=== PATIENT | male | born 1980 | race Caucasian/White ===

== ENCOUNTER 2018-05-19 17:17 | Observation (INO) ==
[2018-05-19] MEDS ORDERED: Sod Chloride 0.9% Inj 1,000 ML IV.CONT SCH (20:30)
--- NOTE | 2018-05-19 20:41 | ED ---
HPI General Chief Complaint: Weakness Stated Complaint: facial paralysis Time Seen by Provider: 05/19/18 20:17 Source: patient Mode of arrival: ambulatory Limitations: no limitations History of Present Illness HPI Narrative: 37-year-old male complains of slow speech and right-sided facial weakness. Patient states that symptoms started 4 days ago. Patient states that the symptoms seem to be worse since then. 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 Patient denies any recent head injury. Patient denies any fever. Patient states that he had headache 4 days ago but not since then. Patient denies any visual change. Patient denies any neck pain. Patient denies any chest pain or shortness of breath. Patient denies abdominal pain. Patient denies any focal weakness or numbness of the extremity. Patient denies history hypertension, diabetes, hyperlipidemia. Patient is a non-smoker. Patient denies any alcohol or drug abuse. Onset (ago): day(s) Timing confirmed by: spouse Location: speech and right face History of same: No Severity: mild Quality: weak Relieving factors: none Exacerbating factors: none Context: sudden onset On Anticoagulants: No Associated symptoms: denies other symptoms Treatments Prior to Arrival: none Related Data Home Medications Medication Instructions Recorded Confirmed No Known Home Medications 05/19/18 05/19/18 Allergies Allergy/AdvReac Type Severity Reaction Status Date / Time steroid AdvReac Hives Uncoded 05/19/18 20:07 Review of Systems ROS: all other systems reviewed are negative PMFSH Medical History Medical History Medical history unknown (Acute) Social History Social History Substance History: No History of Abuse Second Hand Smoke Exposure: No Smoking Status: Never smoker How Often Do You Have a Drink Containing Alcohol: Never Recent Travel in [facility] within the Last 8 Weeks: No Immunization History Tetanus Immunization: Unsure Hx Influenza Vaccine This Season: No Exam Narrative Exam Narrative: GENERAL: Well-nourished, well-developed patient. SKIN: Focused skin assessment warm/dry. HEAD: Normocephalic. EYES: No scleral icterus. No injection or drainage. Visual field intact. NECK: Supple, trachea midline. No JVD or lymphadenopathy. CARDIOVASCULAR: Regular rate and rhythm without murmurs, gallops, or rubs. RESPIRATORY: Breath sounds equal bilaterally. No accessory muscle use. GASTROINTESTINAL: Abdomen soft, non-tender, nondistended. MUSCULOSKELETAL: No cyanosis, or edema. BACK: Nontender without obvious deformity. No CVA tenderness. Neurologic exam: Patient has mild weakness on the right side of face around the mouth area. No evidence of weakness of the forehead. No evidence of any focal weakness or numbness of the extremity. Visual field intact. Course Initial Documented Vital Signs Temperature 98.3 F 05/19/18 18:39 Pulse Rate 87 05/19/18 18:39 Respiratory Rate 18 05/19/18 18:39 Blood Pressure 133/78 05/19/18 18:39 Pulse Oximetry 96 05/19/18 18:39 Last Documented Vital Signs Temperature 98.3 F 05/19/18 18:39 Pulse Rate 87 05/19/18 18:39 Respiratory Rate 18 05/19/18 18:39 Blood Pressure 133/78 05/19/18 18:39 Pulse Oximetry 96 05/19/18 20:41 Medical Decision Making MDM Narrative Medical decision making narrative: 37-year-old male with new onset of right- sided facial weakness and slurred speech. History of Blkfujq-Xfyxg-Jqznc dystrophy. Normal saline solution 70 cc an hour. Medical Screen Exam Complete: Yes Emergency Medical Condition: Yes Differential Diagnosis Differential Diagnosis: Differential diagnosis including TIA, CVA, exacerbation of dystrophy. Lab Data Lab results reviewed: Yes I reviewed the patient's lab results. Result diagrams: 05/19/18 20:34 05/19/18 20:34 Lab Results 05/19/18 05/19/18 05/19/18 Range/Units 20:34 20:34 20:34 WBC 8.1 (4.0-11.0) th/mm3 RBC 4.93 (4.50-5.90) mil/mm3 Hgb 15.6 (13.0-17.0) gm/dL Hct 45.3 (39.0-51.0) % MCV 91.9 (80.0-100.0) fL MCH 31.7 (27.0-34.0) pg MCHC 34.5 (32.0-36.0) % RDW 12.8 (11.6-17.2) % Plt Count 270 (150-450) th/mm3 MPV 8.7 (7.0-11.0) fL Neut % (Auto) 60.5 (16.0-70.0) % Lymph % (Auto) 26.1 (9.0-44.0) % Dare % (Auto) 10.5 H (0.0-8.0) % Eos % (Auto) 2.4 (0.0-4.0) % Baso % (Auto) 0.5 (0.0-2.0) % Neut # (Auto) 4.9 (1.8-7.7) th/mm3 Lymph # (Auto) 2.1 (1.0-4.8) th/mm3 Dare # (Auto) 0.8 (0.0-0.9) th/mm3 Eos # (Auto) 0.2 (0.0-0.4) th/mm3 Baso # (Auto) 0.0 (0.0-0.2) th/mm3 WBC Differential . Differential Comment Auto diff final PT 10.5 (9.8-11.6) sec INR 1.0 Ratio APTT 27.4 (24.3-30.1) sec Sodium 140 (136-145) meq/L Potassium 3.5 (3.5-5.1) meq/L Chloride 105 (98-107) meq/L Carbon Dioxide 29.0 (21.0-32.0) meq/L Anion Gap 6 (5-15) meq/L BUN 10 (7-18) mg/dL Creatinine 1.00 (0.60-1.30) mg/dL Estimated GFR 83 L (>89) mL/min Random Glucose 79 (74-106) mg/dL Calcium 8.4 L (8.5-10.1) mg/dL Total Bilirubin 0.9 (0.2-1.0) mg/dL AST 30 (15-37) U/L ALT 45 (12-78) U/L Alkaline Phosphatase 73 (45-117) U/L Total Protein 7.1 (6.4-8.2) g/dL Albumin 3.8 (3.4-5.0) g/dL Imaging Data Attestation: I personally reviewed and interpreted this imaging study as follows : Radiologist's impression: Chest X-Ray 05/19/18 20:24 CONCLUSION: No acute cardiopulmonary disease. Head CT 05/19/18 20:24 CONCLUSION: 1. Negative noncontrast head CT. . Head MRI 05/19/18 20:24 CONCLUSION: 1. Exam with no evidence of infarction. Neck MRA 05/19/18 20:24 CONCLUSION: 1. Unremarkable exam with no evidence of stenosis. Percent stenosis is calculated using the diameter of the stenotic region over the diameter of the normal distal internal carotid artery Head MRA 05/19/18 20:29 CONCLUSION: 1. Unremarkable exam. Discharge Plan Discharge Disposition Patient Disposition: 30 Still Patient Discharge Details Diagnosis: Acute cerebrovascular accident Physicians Team ED Provider: Sadi Burdick Primary Care Provider: Primary Care Caryn Sage Rxs /Orders / Referrals /Forms Prescriptions: No Action No Known Home Medications RF: 0 Discharge Interventions Interventions: Vital Signs Last Done: 05/19/18 18:39 Status ED Status: With Doctor
--- NOTE | 2018-05-19 20:55 | XR ---
EXAM DATE: 05/19/2018 8:43 PM EDT AGE/SEX: 37 years / Male INDICATIONS: Short of breath. CLINICAL DATA: This is the patient's initial encounter. Patient reports that signs and symptoms have been present for 1 day and indicates a pain score of 0/10. MEDICAL/SURGICAL HISTORY: None. None. COMPARISON: No prior exams available for comparison. FINDINGS: A single AP view of the chest demonstrates the lungs to be symmetrically aerated without evidence of mass, infiltrate or effusion. The cardiomediastinal contours are unremarkable. Osseous structures a re intact. CONCLUSION: No acute cardiopulmonary disease. Electronically signed by: Stephen Brush MD 05/19/2018 8:53 PM EDT
[2018-05-19 21:00] LABS: Baso % (Auto) 0.5 % (0.0-2.0); Eos # (Auto) 0.2 th/mm3 (0.0-0.4); Eos % (Auto) 2.4 % (0.0-4.0); Hematocrit 45.3 % (39.0-51.0); Hemoglobin 15.6 gm/dL (13.0-17.0); Lymph # (Auto) 2.1 th/mm3 (1.0-4.8); Lymph % (Auto) 26.1 % (9.0-44.0); Mean Corpuscular HGB Conc 34.5 % (32.0-36.0); Mean Corpuscular Hemoglobin 31.7 pg (27.0-34.0); Mean Corpuscular Volume 91.9 fL (80.0-100.0); Mean Platelet Volume 8.7 fL (7.0-11.0); Mono # (Auto) 0.8 th/mm3 (0.0-0.9); Mono % (Auto) 10.5 % (0.0-8.0); Neut # (Auto) 4.9 th/mm3 (1.8-7.7); Neut % (Auto) 60.5 % (16.0-70.0); Platelet Count 270 th/mm3 (150-450); Red Blood Count 4.93 mil/mm3 (4.50-5.90); Red Cell Distribution Width 12.8 % (11.6-17.2); White Blood Count 8.1 th/mm3 (4.0-11.0)
--- NOTE | 2018-05-19 21:07 | CT ---
EXAM DATE: 05/19/2018 9:04 PM EDT AGE/SEX: 37 years / Male INDICATIONS: Right sided facial weakness. CLINICAL DATA: This is the patient's initial encounter. Patient reports that signs and symptoms have been present for 1 week and indicates a pain score of 0/10. MEDICAL/SURGICAL HISTORY: None. None. RADIATION DOSE: 46.83 CTDI (mGy) COMPARISON: No prior exams available for comparison. TECHNIQUE: CT of the head without contrast. Using automated exposure control and adjustment of the mA and/or kV according to patient size, radiation dose was kept as low as reasonably achievable to ob tain optimal diagnostic quality images. DICOM format image data is available electronically for revi ew and comparison. FINDINGS: Cerebrum: The ventricles are normal for age. No evidence of midline shift, mass lesion, hemorrhage or acute infarction. No extraaxial fluid collections are seen. Posterior Fossa: The cerebellum and brainstem are intact. The 4th ventricle is midline. The cerebe llopontine angle is unremarkable. Extracranial: The visualized portion of the orbits is intact. Skull: The calvaria is intact. No evidence of skull fracture. CONCLUSION: 1. Negative noncontrast head CT. . Electronically signed by: Stephen Brush MD 05/19/2018 9:05 PM EDT
[2018-05-19 21:12] LABS: Activated Partial Thrombo Time 27.4 sec (24.3-30.1); Prothrombin Time 10.5 sec (9.8-11.6)
[2018-05-19 21:27] LABS: Albumin 3.8 g/dL (3.4-5.0); Anion Gap 6 meq/L (5-15); Aspartate Aminotransferase 30 U/L (15-37); Blood Urea Nitrogen 10 mg/dL (7-18); Calcium 8.4 mg/dL (8.5-10.1); Chloride 105 meq/L (98-107); Glomerular Filtration Rate 83 mL/min (>89); Glucose,Random 79 mg/dL (74-106); Potassium 3.5 meq/L (3.5-5.1); Sodium 140 meq/L (136-145)
[2018-05-19 21:28] LABS: Alanine Aminotransferase 45 U/L (12-78)
[2018-05-19 21:30] LABS: Alkaline Phosphatase 73 U/L (45-117); Total Protein 7.1 g/dL (6.4-8.2)
--- NOTE | 2018-05-19 22:25 | MR ---
EXAM DATE: 05/19/2018 10:20 PM EDT AGE/SEX: 37 years / Male INDICATIONS: CVA. Right facial numbness. CLINICAL DATA: This is the patient's initial encounter. Patient reports that signs and symptoms have been present for 1 day and indicates a pain score of 0/10. MEDICAL/SURGICAL HISTORY: None. . Left knee surgery. COMPARISON: C, MRA HEAD W/O CONTRAST, 05/19/2018. . TECHNIQUE: Multiplanar, multisequence examination of the brain was performed without contrast. FINDINGS: Cerebrum: The ventricles are normal for age. No evidence of midline shift, mass lesion, hemorrhage or acute infarction. No extraaxial fluid collections are seen. The pituitary gland and suprasellar cistern are normal in configuration. White Matter: No significant signal abnormalities are seen in the white matter. Posterior Fossa: The cerebellum and brainstem are intact. The 4th ventricle is midline. The cerebel lopontine angle is unremarkable. The cerebellar tonsils are normal in position. Diffusion Imaging: No focal areas of restricted diffusion are seen. No evidence of acute infarction . Extracranial: The visualized portions of the orbits and paranasal sinuses are unremarkable. CONCLUSION: 1. Exam with no evidence of infarction. Electronically signed by: Stephen Brush MD 05/19/2018 10:23 PM EDT
[2018-05-19] MEDS ORDERED: Gadobutrol PF 10 MMOL/10 ML Vial (for RAD) IV.SIG ONE (22:29)
--- NOTE | 2018-05-19 22:41 | MR ---
EXAM DATE: 05/19/2018 10:20 PM EDT AGE/SEX: 37 years / Male INDICATIONS: CVA. Right facial numbness. CLINICAL DATA: This is the patient's initial encounter. Patient reports that signs and symptoms have been present for 1 day and indicates a pain score of 0/10. MEDICAL/SURGICAL HISTORY: None. . Left knee surgery. COMPARISON: [facility] [place], MR HEAD W/O CONTRAST, 05/19/2018. . TECHNIQUE: 3D [id number] MRA was performed. Source images, multiplanar STS MIP, and 3D volum e MIP reconstructions were reviewed. FINDINGS: There is excellent visualization of the major intracranial arteries out to the second-order branch ve ssels. There is no evidence for aneurysm, vessel truncation or stenosis, and no evidence for vascula r malformation. CONCLUSION: 1. Unremarkable exam. Electronically signed by: Stephen Brush MD 05/19/2018 10:40 PM EDT
--- NOTE | 2018-05-19 22:43 | MR ---
EXAM DATE: 05/19/2018 10:24 PM EDT AGE/SEX: 37 years / Male INDICATIONS: . Right facial numbness. CLINICAL DATA: This is the patient's initial encounter. Patient reports that signs and symptoms have been present for 3 days and indicates a pain score of 0/10. MEDICAL/SURGICAL HISTORY: None. . Left knee surgery. COMPARISON: No prior exams available for comparison. TECHNIQUE: 10 ml Gadavist (gadobutrol) contrast infused MRA (single exam dose) of the extracranial circulation was performed using a neurovascular coil. Postprocessing was performed, including rotati ng sub-volume maximum intensity projections of each carotid artery, rotating full-volume maximum inte nsity projections of both carotid arteries, sagittal and coronal sliding thin-slab reformations of ea ch carotid artery, and left oblique sliding thin-slab reformation through the aortic arch to include the origin of the arch branch vessels. FINDINGS: Aortic Arch : There is a three-vessel origin of the great vessels from the aorta. No evidence of o stial narrowing. Right Carotid : The common carotid artery is intact. The carotid bulb has a normal configuration wi thout ulceration or narrowing. The internal carotid artery lumen is smooth without stenosis. The ex ternal carotid artery is intact. Left Carotid : The common carotid artery is intact. The carotid bulb has a normal configuration wit hout ulceration or narrowing. The internal carotid artery lumen is smooth without stenosis. The ext ernal carotid artery is intact. Vertebrals : The vertebral arteries have a symmetric diameter. No stenotic lesions are seen. CONCLUSION: 1. Unremarkable exam with no evidence of stenosis. Percent stenosis is calculated using the diameter of the stenotic region over the diameter of the nor mal distal internal carotid artery Electronically signed by: Stephen Brush MD 05/19/2018 10:42 PM EDT
[2018-05-19] MEDS ORDERED: Aspirin 325 MG Tablet PO ONE (23:19)
[2018-05-20 00:04] LABS: Amphetamine Screen,Urine Neg (Neg); Barbiturate Screen,Urine Neg (Neg); Cannabinoid Screen,Urine Neg (Neg); Cocaine Screen,Urine Neg (Neg)
[2018-05-20 00:11] LABS: Opiate Screen,Urine Neg (Neg)
[2018-05-20] MEDS ORDERED: Acetaminophen 325 MG Tablet PO PRN (00:45)
[2018-05-20] MEDS: Sod Chloride 0.9% Inj 1,000 ML IV.CONT SCH ×3 (01:00→23:06)
--- NOTE | 2018-05-20 01:11 | P.HP ---
History of Present Illness Service: [facility] Primary Care Physician: No Primary Care Physician History of Present Illness: 37-year-old male with a past medical history significant for Charcot-Moria- Tooth presents to the emergency department for the evaluation of 4 days of left sided mouth weakness/droop. The patient reports that his symptoms worsen when he is eating or talking. He states that he is generally uncomfortable and sore in his mouth region. He reports similar symptoms that occurred once in January but they were less severe and resolved on their own. He denies any preceding illness. No fevers/chills. No chest pain or shortness of breath. No abdominal pain. No nausea/vomiting/diarrhea. Review of Systems All other systems reviewed negative except as stated in HPI [facility] - History History Provided By: Patient - Medical History Medical History: Medical History (Last Updated 05/20/18 @ 01:06 by Marysol Quinn MD) Dhfxajc-Sldqz-Wiptp atrophy - Surgical History Surgical History: Surgical History (Last Updated 05/20/18 @ 01:07 by Marysol Quinn MD) History of knee surgery - Family History Family History: Family History (Last Updated 05/20/18 @ 01:07 by Marysol Quinn MD) Other Myasthenia gravis - Tobacco History Second Hand Smoke Exposure: No Tobacco Use In Past 30 Days: No Smoking Status: Never smoker - Alcohol History How Often Do You Have a Drink Containing Alcohol: Never - Substance Use History Substance History: No History of Abuse - Travel History Recent Travel in the [facility] Within the Last 8 Weeks: No - Immunization History Tetanus Immunization: Unsure Hx Influenza Vaccine This Season: No Medications and Allergies Active Medications: Active Medications Acetaminophen (Tylenol) 650 mg PO Q4H PRN PRN Reason: Temp > 100.4 Sodium Chloride (Ns Inj) 1,000 mls @ 100 mls/hr IV.CONT .Q10H VANI Ondansetron HCl (Zofran Inj) 4 mg IV.PUSH Q6H PRN PRN Reason: NAUSEA OR VOMITING Allergies Allergy/AdvReac Type Severity Reaction Status Date / Time steroid AdvReac Hives Uncoded 05/19/18 20:07 Home Medications Medication Instructions Recorded Confirmed Type No Known Home Medications 05/19/18 05/19/18 History Exam Vital signs: Vital Signs 05/19/18 18:39 05/19/18 20:41 Temperature 98.3 F Pulse Rate 87 Respiratory Rate 18 Blood Pressure 133/78 Pulse Oximetry 96 96 Intake & Output 05/19/18 05/19/18 05/20/18 06:59 18:59 06:59 Weight 102.058 kg Narrative: Gen.: No acute distress Head: Normocephalic. Atraumatic. EENT: Pupils equal round and reactive to light. Nose without drainage. Airway intact. Throat without injection. Cardiovascular: Regular rate and rhythm. No murmurs, rubs or gallops. Respiratory: Lungs clear to auscultation bilaterally. No wheezes or rhonchi. Abdomen: Soft, nontender, nondistended. No peritoneal signs. Musculoskeletal: No gross deformities. No edema. Skin: No obvious rashes or erythema. Neuro: Sensory and motor grossly intact. 5/5 strength in upper and lower extremities, symmetrical. Slight left sided mouth droop. Slight asymmetry with smile. Remainder of cranial nerves intact. Results - Labs CBC & Chem 7: 05/19/18 20:34 05/19/18 20:34 Labs: Laboratory Results - last 24 hr 05/19/18 05/19/18 05/19/18 20:34 20:34 20:34 WBC 8.1 RBC 4.93 Hgb 15.6 Hct 45.3 MCV 91.9 MCH 31.7 MCHC 34.5 RDW 12.8 Plt Count 270 MPV 8.7 Neut % (Auto) 60.5 Lymph % (Auto) 26.1 [place] % (Auto) 10.5 H Eos % (Auto) 2.4 Baso % (Auto) 0.5 Neut # (Auto) 4.9 Lymph # (Auto) 2.1 [place] # (Auto) 0.8 Eos # (Auto) 0.2 Baso # (Auto) 0.0 WBC Differential . Differential Comment Auto diff final PT 10.5 INR 1.0 APTT 27.4 Sodium 140 Potassium 3.5 Chloride 105 Carbon Dioxide 29.0 Anion Gap 6 BUN 10 Creatinine 1.00 Estimated GFR 83 L Random Glucose 79 Calcium 8.4 L Total Bilirubin 0.9 AST 30 ALT 45 Alkaline Phosphatase 73 Total Protein 7.1 Albumin 3.8 Urine Opiates Screen Ur Barbiturates Screen Ur Amphetamines Screen U Benzodiazepines Scrn Urine Cocaine Screen U Cannabinoids Screen 05/19/18 22:35 WBC RBC Hgb Hct MCV MCH MCHC RDW Plt Count MPV Neut % (Auto) Lymph % (Auto) [place] % (Auto) Eos % (Auto) Baso % (Auto) Neut # (Auto) Lymph # (Auto) [place] # (Auto) Eos # (Auto) Baso # (Auto) WBC Differential Differential Comment PT INR APTT Sodium Potassium Chloride Carbon Dioxide Anion Gap BUN Creatinine Estimated GFR Random Glucose Calcium Total Bilirubin AST ALT Alkaline Phosphatase Total Protein Albumin Urine Opiates Screen Neg Ur Barbiturates Screen Neg Ur Amphetamines Screen Neg U Benzodiazepines Scrn Neg Urine Cocaine Screen Neg U Cannabinoids Screen Neg - Imaging Impressions Chest X-Ray 05/19/18 20:24 CONCLUSION: No acute cardiopulmonary disease. Head CT 05/19/18 20:24 CONCLUSION: 1. Negative noncontrast head CT. . Head MRI 05/19/18 20:24 CONCLUSION: 1. Exam with no evidence of infarction. Neck MRA 05/19/18 20:24 CONCLUSION: 1. Unremarkable exam with no evidence of stenosis. Percent stenosis is calculated using the diameter of the stenotic region over the diameter of the normal distal internal carotid artery Head MRA 05/19/18 20:29 CONCLUSION: 1. Unremarkable exam. Caprini VTE Risk Assessment Caprini VTE Risk Assessment: No/Low Risk (score <= 1) Caprini Risk Assessment Model: Point Value = 1 Point Value = 2 Point Value = 3 Point Value = 5 Age 41-60 Minor surgery BMI > 25 kg/m2 Swollen legs Varicose veins or History of unexplained or recurrent spontaneous Oral contraceptives or hormone replacement Sepsis (< 1 month) Serious lung disease, including pneumonia (< 1 month) Abnormal pulmonary function Acute myocardial infarction Congestive heart failure (< 1 month) History of inflammatory bowel disease Medical patient at bed rest Age 61-74 Arthroscopic surgery Major open surgery (> 45 min) Laparoscopic surgery (> 45 min) Malignancy Confined to bed (> 72 hours) Immobilizing plaster cast Central venous access Age >= 75 History of VTE Family history of VTE Factor V Leiden Prothrombin [id number] Lupus anticoagulant Anticardiolipin antibodies Elevated serum homocysteine Heparin-induced thrombocytopenia Other congenital or acquired thrombophilia Stroke (< 1 month) Elective arthroplasty Hip, pelvis, or leg fracture Acute spinal cord injury (< 1 month) Prophylaxis Regimen: Total Risk Factor Score Risk Level Prophylaxis Regimen 0-1 Low Early ambulation 2 Moderate Order ONE of the following: *Sequential Compression Device (SCD) *Heparin 5000 units SQ BID 3-4 Higher Order ONE of the following medications: *Heparin 5000 units SQ TID *Enoxaparin/Lovenox 40 mg SQ daily (WT < 150 kg, CrCl > 30 mL/min) *Enoxaparin/Lovenox 30 mg SQ daily (WT < 150 kg, CrCl > 10-29 mL/min) *Enoxaparin/Lovenox 30 mg SQ BID (WT < 150 kg, CrCl > 30 mL/min) AND/OR *Sequential Compression Device (SCD) 5 or more Highest Order ONE of the following medications: *Heparin 5000 units SQ TID (Preferred with Epidurals) *Enoxaparin/Lovenox 40 mg SQ daily (WT < 150 kg, CrCl > 30 mL/min) *Enoxaparin/Lovenox 30 mg SQ daily (WT < 150 kg, CrCl > 10-29 mL/min) *Enoxaparin/Lovenox 30 mg SQ BID (WT < 150 kg, CrCl > 30 mL/min) AND *Sequential Compression Device (SCD) Assessment and Plan - Plan Assessment/plan: 1. 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 Sicuvzy-Ppwam-Iqlvf Continue outpatient follow-up FEN N.p.o. Electrolytes: Monitor and replete as needed NS at 70 cc/hour
--- NOTE | 2018-05-20 07:56 | P.CONNEU ---
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 He states they worsen as the day progresses and states with the past few days he feels the weakness in his face is getting worse and moving upwards. Effexor speech occasional swallowing. Denies any new weakness in his arms or legs with chronic distal foot weakness. Denies any sick contacts any recent stressors immunizations. Denies any diplopia or ptosis. MRI brain scan negative for any acute lesion. Brain and carotid vessel imaging normal. Review of Systems All other systems reviewed negative except as stated [facility] - History History Provided By: Patient - Medical History Medical History: Medical History (Last Reviewed 05/20/18 @ 09:10 by Ciro Murillo) Mttoiov-Mcjei-Tjgsq atrophy - Surgical History Surgical History: Surgical History (Last Updated 05/20/18 @ 01:07 by Marysol Quinn MD) History of knee surgery - Family History Family History: Family History (Last Updated 05/20/18 @ 01:07 by Marysol Quinn MD) Other Myasthenia gravis - Tobacco History Second Hand Smoke Exposure: No Tobacco Use In Past 30 Days: No Smoking Status: Never smoker - Alcohol History How Often Do You Have a Drink Containing Alcohol: Monthly or less - Substance Use History Substance History: No History of Abuse - Travel History Recent Travel in the [facility] Within the Last 8 Weeks: No - Immunization History Tetanus Immunization: Unsure Hx Influenza Vaccine This Season: No Medications and Allergies Active Medications: Active Medications Acetaminophen (Tylenol) 650 mg PO Q4H PRN PRN Reason: Temp > 100.4 Sodium Chloride (Ns Inj) 1,000 mls @ 100 mls/hr IV.CONT .Q10H VANI Last Infusion: 05/20/18 02:45 Dose: 100 mls/hr Ondansetron HCl (Zofran Inj) 4 mg IV.PUSH Q6H PRN PRN Reason: NAUSEA OR VOMITING Allergies Allergy/AdvReac Type Severity Reaction Status Date / Time steroid AdvReac Hives Uncoded 09/10/18 20:07 Home Medications Medication Instructions Recorded Confirmed Type No Known Home Medications 05/19/18 05/19/18 History Exam Vital signs: Vital Signs 05/19/18 18:39 05/19/18 20:41 05/20/18 00:46 Temperature 98.3 F Pulse Rate 87 61 Respiratory Rate 18 16 Blood Pressure 133/78 137/90 Pulse Oximetry 96 96 96 05/20/18 04:00 05/20/18 07:47 Temperature 97.4 F L 97.9 F Pulse Rate 56 L 63 Respiratory Rate 19 16 Blood Pressure 114/72 115/74 Pulse Oximetry 97 95 Intake & Output 05/19/18 05/20/18 05/20/18 18:59 06:59 18:59 Weight 102.058 kg 102.058 kg Other: Weight On Admission 102.058 kg Narrative: Awake alert oriented 3 no aphasia. Speech was clear he was articulate. No ptosis appreciated no diplopia. Very minimal facial weakness on the left side smile overall symmetric. Visual [place] full pupils 3 2 mm bilaterally, shoulder shrug 5 out of 5. 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 He had hammertoes in the lower extremities pretty significant with reduced toe movement as result reflexes were 1-2+ plantarflex her no clonus. Slightly reduced light touch his feet gait not assessed secondary fall risk - Constitutional no acute distress - Routine HEENT Exam Head: Present: normocephalic Eye: Present: EOMI Results - Labs CBC & Chem 7: 05/19/18 20:34 05/19/18 20:34 Labs: Laboratory Results - last 24 hr 05/19/18 05/19/18 05/19/18 20:34 20:34 20:34 WBC 8.1 RBC 4.93 Hgb 15.6 Hct 45.3 MCV 91.9 MCH 31.7 MCHC 34.5 RDW 12.8 Plt Count 270 MPV 8.7 Neut % (Auto) 60.5 Lymph % (Auto) 26.1 [place] % (Auto) 10.5 H Eos % (Auto) 2.4 Baso % (Auto) 0.5 Neut # (Auto) 4.9 Lymph # (Auto) 2.1 [place] # (Auto) 0.8 Eos # (Auto) 0.2 Baso # (Auto) 0.0 WBC Differential . Differential Comment Auto diff final PT 10.5 INR 1.0 APTT 27.4 Sodium 140 Potassium 3.5 Chloride 105 Carbon Dioxide 29.0 Anion Gap 6 BUN 10 Creatinine 1.00 Estimated GFR 83 L Random Glucose 79 Calcium 8.4 L Total Bilirubin 0.9 AST 30 ALT 45 Alkaline Phosphatase 73 Total Protein 7.1 Albumin 3.8 Urine Opiates Screen Ur Barbiturates Screen Ur Amphetamines Screen U Benzodiazepines Scrn Urine Cocaine Screen U Cannabinoids Screen 05/19/18 22:35 WBC RBC Hgb Hct MCV MCH MCHC RDW Plt Count MPV Neut % (Auto) Lymph % (Auto) [place] % (Auto) Eos % (Auto) Baso % (Auto) Neut # (Auto) Lymph # (Auto) [place] # (Auto) Eos # (Auto) Baso # (Auto) WBC Differential Differential Comment PT INR APTT Sodium Potassium Chloride Carbon Dioxide Anion Gap BUN Creatinine Estimated GFR Random Glucose Calcium Total Bilirubin AST ALT Alkaline Phosphatase Total Protein Albumin Urine Opiates Screen Neg Ur Barbiturates Screen Neg Ur Amphetamines Screen Neg U Benzodiazepines Scrn Neg Urine Cocaine Screen Neg U Cannabinoids Screen Neg - Imaging Impressions Chest X-Ray 05/19/18 20:24 CONCLUSION: No acute cardiopulmonary disease. Head CT 05/19/18 20:24 CONCLUSION: 1. Negative noncontrast head CT. . Head MRI 05/19/18 20:24 CONCLUSION: 1. Exam with no evidence of infarction. Neck MRA 05/19/18 20:24 CONCLUSION: 1. Unremarkable exam with no evidence of stenosis. Percent stenosis is calculated using the diameter of the stenotic region over the diameter of the normal distal internal carotid artery Head MRA 05/19/18 20:29 CONCLUSION: 1. Unremarkable exam. 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 This may be related to Zbmtmxe-Cylts-Ukhqn disease. Mendoza's palsy possibility although less likely his symptoms have been occurring since January and have been off and on with some worsening with fatigue and exertion. There is a possibility of neuromuscular junction disorder such as myasthenia gravis although is minimal ocular symptoms. No history of tick bites. No known history of sarcoidosis. Recommendations Would suggest lumbar puncture as he feels his facial weakness is getting worse Speech therapy Myasthenia gravis panel, Lyme antibodies
--- NOTE | 2018-05-20 13:32 | ECG ---
Date Performed: 05/19/2018 Time Performed: 20:46:03 PTAGE: 37 years EKG: SINUS BRADYCARDIA WITH OCCASIONAL SUPRAVENTRICULAR PREMATURE COMPLEXES BORDERLINE ECG NO PREVIOUS TRACING DOCTOR: Marquez Martini Interpretating Date/Time 05/20/2018 13:29:31
--- NOTE | 2018-05-20 15:59 | P.PN ---
Subjective Interval history: Nursing denies any deterioration since last night except for the patient complaining of some facial numbness and transient paralysis that occurs after prolonged conversation or shortly after a meal. Physical Exam Vital signs: Vital Signs 05/19/18 18:39 05/19/18 20:41 05/20/18 00:46 Temperature 98.3 F Pulse Rate 87 61 Respiratory Rate 18 16 Blood Pressure 133/78 137/90 Pulse Oximetry 96 96 96 05/20/18 04:00 05/20/18 07:47 05/20/18 10:26 Temperature 97.4 F L 97.9 F Pulse Rate 56 L 63 64 Respiratory Rate 19 16 Blood Pressure 114/72 115/74 Pulse Oximetry 97 95 05/20/18 12:00 05/20/18 12:05 Temperature 98.0 F Pulse Rate 64 69 Respiratory Rate 18 Blood Pressure 130/69 Pulse Oximetry 98 Intake & Output 05/19/18 05/20/18 05/20/18 18:59 06:59 18:59 Intake Total 1999 Balance 1999 Weight 102.058 kg 102.058 kg Intake: IV 1999 NS Inj 1,000 ML @ 100 mls/hr IV 1000 / 1000 .CONT .Q10H [facility] Rx#:[id number] Other: Weight On Admission 102.058 kg Results - Labs CBC & Chem 7: 05/19/18 20:34 05/19/18 20:34 Laboratory Results - last 24 hr 05/19/18 05/19/18 05/19/18 20:34 20:34 20:34 WBC 8.1 RBC 4.93 Hgb 15.6 Hct 45.3 MCV 91.9 MCH 31.7 MCHC 34.5 RDW 12.8 Plt Count 270 MPV 8.7 Neut % (Auto) 60.5 Lymph % (Auto) 26.1 [place] % (Auto) 10.5 H Eos % (Auto) 2.4 Baso % (Auto) 0.5 Neut # (Auto) 4.9 Lymph # (Auto) 2.1 [place] # (Auto) 0.8 Eos # (Auto) 0.2 Baso # (Auto) 0.0 WBC Differential . Differential Comment Auto diff final PT 10.5 INR 1.0 APTT 27.4 Sodium 140 Potassium 3.5 Chloride 105 Carbon Dioxide 29.0 Anion Gap 6 BUN 10 Creatinine 1.00 Estimated GFR 83 L Random Glucose 79 Calcium 8.4 L Total Bilirubin 0.9 AST 30 ALT 45 Alkaline Phosphatase 73 Total Protein 7.1 Albumin 3.8 Urine Opiates Screen Ur Barbiturates Screen Ur Amphetamines Screen U Benzodiazepines Scrn Urine Cocaine Screen U Cannabinoids Screen 05/19/18 22:35 WBC RBC Hgb Hct MCV MCH MCHC RDW Plt Count MPV Neut % (Auto) Lymph % (Auto) [place] % (Auto) Eos % (Auto) Baso % (Auto) Neut # (Auto) Lymph # (Auto) [place] # (Auto) Eos # (Auto) Baso # (Auto) WBC Differential Differential Comment PT INR APTT Sodium Potassium Chloride Carbon Dioxide Anion Gap BUN Creatinine Estimated GFR Random Glucose Calcium Total Bilirubin AST ALT Alkaline Phosphatase Total Protein Albumin Urine Opiates Screen Neg Ur Barbiturates Screen Neg Ur Amphetamines Screen Neg U Benzodiazepines Scrn Neg Urine Cocaine Screen Neg U Cannabinoids Screen Neg - Imaging Impressions Chest X-Ray 05/19/18 20:24 CONCLUSION: No acute cardiopulmonary disease. Head CT 05/19/18 20:24 CONCLUSION: 1. Negative noncontrast head CT. . Head MRI 05/19/18 20:24 CONCLUSION: 1. Exam with no evidence of infarction. Neck MRA 05/19/18 20:24 CONCLUSION: 1. Unremarkable exam with no evidence of stenosis. Percent stenosis is calculated using the diameter of the stenotic region over the diameter of the normal distal internal carotid artery Head MRA 05/19/18 20:29 CONCLUSION: 1. Unremarkable exam. Assessment and Plan - Plan 37-year-old white male admitted for left facial weakness and numbness 1. Left sided mouth weakness/asymmetry Head MRI, head and neck MRA, head CT all without acute process Unlikely Mendoza's palsy as remainder of cranial nerve testing negative Cannot exclude myasthenia gravis his symptoms worsen with repeated use Neurology consulted, recommends LP and swallow evaluation 2. Cojorkl-Eyjsm-Uvjwa Continue outpatient follow-up
[2018-05-21] MEDS: Sod Chloride 0.9% Inj 1,000 ML IV.CONT SCH ×2 (01:02→06:14)
[2018-05-21 07:35] VITALS: RESP 18
[2018-05-21 07:47] LABS: Baso % (Auto) 0.7 % (0.0-2.0); Eos # (Auto) 0.2 th/mm3 (0.0-0.4); Eos % (Auto) 3.2 % (0.0-4.0); Hematocrit 46.4 % (39.0-51.0); Hemoglobin 16.1 gm/dL (13.0-17.0); Lymph # (Auto) 1.2 th/mm3 (1.0-4.8); Lymph % (Auto) 24.7 % (9.0-44.0); Mean Corpuscular HGB Conc 34.7 % (32.0-36.0); Mean Corpuscular Hemoglobin 32.1 pg (27.0-34.0); Mean Corpuscular Volume 92.6 fL (80.0-100.0); Mean Platelet Volume 8.8 fL (7.0-11.0); Mono # (Auto) 0.4 th/mm3 (0.0-0.9); Mono % (Auto) 7.8 % (0.0-8.0); Neut # (Auto) 3.2 th/mm3 (1.8-7.7); Neut % (Auto) 63.6 % (16.0-70.0); Platelet Count 244 th/mm3 (150-450); Red Blood Count 5.01 mil/mm3 (4.50-5.90)
[2018-05-21 08:12] LABS: Anion Gap 7 meq/L (5-15); Blood Urea Nitrogen 6 mg/dL (7-18); Calcium 8.3 mg/dL (8.5-10.1); Carbon Dioxide 25.8 meq/L (21.0-32.0); Chloride 109 meq/L (98-107); Glomerular Filtration Rate Greater Than 89 mL/min (>89); Glucose,Random 89 mg/dL (74-106); Potassium 3.9 meq/L (3.5-5.1); Sodium 142 meq/L (136-145)
[2018-05-21 08:39] LABS: Thyroid Stimulating Hormone 0.858 uIU/mL (0.358-3.740); Vitamin B12 210 pg/mL (193-986)
--- NOTE | 2018-05-21 11:21 | OTSOAPIP ---
TIME SESSION COMPLETED: 1045 RECEIVED OCC[address] THERAPY ORDERS FROM DR. JAMES. INITIALLY, PATIENT WAS THOUGHT TO BE A STROKE ALERT, HOWEVER PATIENTS FACIAL SYMPTOMS APPEAR TO BE RELATED TO HISTORY OF [id number] DISEASE. PATIENT IS COGNITIVELY INTACT. HE IS INDEPENDENT WITH ALL FUNCTIONAL MOBILITY PER PHYSICAL THERAPY AND HE DENIES ANY FUNCTIONAL LIMITATIONS IMPACTING HIS ABILITY TO COMPLETE ADLS AT THIS TIME. 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 SCREEN COMPLETED AND PATIENT DOES NOT WARRANT A FULL EVALUATION FOR SKILLED OCCUPATIONAL THERAPY, THEREFORE OT WILL SIGN OFF. DISCUSSED WITH PATIENT WHO VERBALLY AGREED. INTERDISCIPLINARY COMMUNICATION: REVIEWED ELECTRONIC MEDICAL RECORD Therapist: Jeny Razo OTR/Hair Signature on file
[2018-05-21 12:03] VITALS: BP 134/81; PULSE 82; TEMP 98.8; O2SAT 96
--- NOTE | 2018-05-21 12:05 | P.PN ---
Subjective Interval history: Nursing denies any deterioration since last night. Patient himself has no new complaints. Ambulating well, no issues with choking with meals. Physical Exam Vital signs: Vital Signs 05/20/18 16:00 05/20/18 19:23 05/20/18 23:44 Temperature 97.4 F L 97.8 F 97.8 F Pulse Rate 72 67 68 Respiratory Rate 18 22 21 Blood Pressure 127/85 109/63 110/67 Pulse Oximetry 96 98 98 05/21/18 04:00 05/21/18 07:31 05/21/18 12:00 Temperature 97.5 F L 97.8 F 98.8 F Pulse Rate 53 L 65 82 Respiratory Rate 21 18 18 Blood Pressure 110/75 124/87 134/81 Pulse Oximetry 97 95 96 Intake & Output 05/20/18 05/21/18 05/21/18 18:59 06:59 18:59 Intake Total 2000 / 2000 1000 / 1000 1000 / 1000 Balance 2000 / 2000 1000 / 1000 1000 / 1000 Weight 66.5 kg Intake: IV 2000 / 2000 1000 / 1000 1000 / 1000 NS Inj 1,000 ML @ 100 mls/hr IV 1000 / 1000 1000 / 1000 1000 / 1000 .CONT .Q10H VANI Rx#:[id number] Other: # Voids 1 # Urine Diapers 2 Date of Last Bowel Movement 05/19/18 Narrative: No facial droop, no slurred speech, Ambulating well Results - Labs CBC & Chem 7: 05/21/18 07:19 05/21/18 07:19 Laboratory Results - last 24 hr 05/21/18 05/21/18 07:19 07:19 WBC 5.0 RBC 5.01 Hgb 16.1 Hct 46.4 MCV 92.6 MCH 32.1 MCHC 34.7 RDW 13.0 Plt Count 244 MPV 8.8 Neut % (Auto) 63.6 Lymph % (Auto) 24.7 [place] % (Auto) 7.8 Eos % (Auto) 3.2 Baso % (Auto) 0.7 Neut # (Auto) 3.2 Lymph # (Auto) 1.2 [place] # (Auto) 0.4 Eos # (Auto) 0.2 Baso # (Auto) 0.0 WBC Differential . Differential Comment Auto diff final Sodium 142 Potassium 3.9 Chloride 109 H Carbon Dioxide 25.8 Anion Gap 7 BUN 6 L Creatinine 0.84 Estimated GFR Greater than 89 Random Glucose 89 Calcium 8.3 L Vitamin B12 210 TSH 0.858 Assessment and Plan - Plan 37-year-old white male admitted for left facial weakness and numbness Transient left-sided facial weakness that occurs with prolonged muscle use. Neurology entertaining the notion that this could be a neuromuscular disease process. Lumbar puncture has been on hold at least until 2 days or not given the fact that the patient at 325 mg aspirin yesterday. Neurology okay with patient being discharged and getting this done as an outpatient. Patient has met maximal benefit from hospitalization is clinically stable for discharge, patient feels quite safe on going home and really wants to go home.
--- NOTE | 2018-05-21 12:45 | ECHRPT ---
Indication: CVA/TIA CONCLUSIONS Normal left ventricular size. Wall thickness is normal. No definite regional wall motion abnormalities are present. The left ventricular systolic function is normal with an estimated ejection fraction in the range of 55-60%. No definite valvular abnormalities. There is a trivial pericardial effusion present. BP: / HR: Rhythm: MEASUREMENTS (Male / Female) Normal Values Technical Quality: 2D ECHO LV Diastolic Diameter PLAX 4.9 cm 4.2 - 5.9 / 3.9 - 5.3 cm LV Systolic Diameter PLAX 3.6 cm IVS Diastolic Thickness 0.9 cm 0.6 - 1.0 / 0.6 - 0.9 cm LVPW Diastolic Thickness 0.7 cm 0.6 - 1.0 / 0.6 - 0.9 cm LV Relative Wall Thickness 0.3 RV Internal Dim ED PLAX 2.5 cm LA Systolic Diameter LX 3.7 cm 3.0 - 4.0 / 2.7 - 3.8 cm M-MODE AV Cusp Separation MM 1.8 cm DOPPLER Mitral E Point Velocity 82.4 cm/s Mitral A Point Velocity 48.9 cm/s Mitral E to A Ratio 1.7 TR Peak Velocity 140.0 cm/s TR Peak Gradient 7.8 mmHg Right Atrial Pressure 10.0 mmHg Pulmonary Artery Systolic Pressu 17.8 mmHg Right Ventricular Systolic Press 17.8 mmHg FINDINGS LEFT VENTRICLE Normal left ventricular size. Wall thickness is normal. No definite regional wall motion abnormalities are present. The left ventricular systolic function is normal with an estimated ejection fraction in the range of 55-60%. RIGHT VENTRICLE Normal right ventricular size and systolic function. LEFT ATRIUM The left atrial size is normal. RIGHT ATRIUM The right atrial size is normal. ATRIAL SEPTUM Normal atrial septal thickness without atrial level shunting by limited color doppler interrogation. AORTA The aortic root and proximal ascending aorta are normal in size on limited imaging. MITRAL VALVE Structurally normal mitral valve. No mitral valve stenosis or regurgitation. AORTIC VALVE Trileaflet aortic valve. No aortic valve stenosis or regurgitation. TRICUSPID VALVE Structurally normal tricuspid valve. No tricuspid valve stenosis or regurgitation. PULMONARY VALVE No pulmonary valve regurgitation or stenosis. VESSELS The inferior vena cava is normal in size. PERICARDIUM There is a trivial pericardial effusion present. Arnol Saleh MD (Electronically Signed) Final Date:21 May 2018 12:45
== END 2018-05-21 13:54 | disposition home or self-care (01) ==
LOC: NEPD 17:17 → NEDA 17:17 → NEPHCDU 05-20 02:35
PROVIDERS: ADMIT Hospitalist; ATTEND Hospitalist
DX: I63.9 Cerebral infarction, unspecified; R94.31 Abnormal electrocardiogram [ECG] [EKG]; G60.0 Hereditary motor and sensory neuropathy